=== PATIENT | male | born 1935 | race Caucasian/White ===

== ENCOUNTER 2017-01-06 13:16 | Emergency (ER) | payer OTHER ==
[~2017-01-06] VITALS: Wt 68.0 kg
[2017-01-06] MEDS ORDERED: SYMBICORT1 AE1 INH (13:21)
[2017-01-06] MEDS ORDERED: ONETOUCH ULTRA1 EACH MC (13:29)
[2017-01-06] MEDS ORDERED: AMARYL2 MG PO (13:29)
[2017-01-06] MEDS ORDERED: LOVASTATIN40 MG PO (13:30)
[2017-01-06] MEDS ORDERED: METFORMIN HCL500 MG PO (13:30)
[2017-01-06] MEDS ORDERED: LEVEMIR10 ML SC (13:31)
[2017-01-06 13:53] LABS: BASO % 0.2 % (0.0-1.0); EOS % 0.1 % (1.0-4.0); HEMATOCRIT 39.1 % (42.0-52.0); HEMOGLOBIN 12.4 g/dl (14.0-18.0); LYMPH # 1.5 10*3/uL (1.3-4.4); LYMPH % 14.5 % (27.0-41.0); MEAN CELL VOLUME 92.2 fl (80.0-94.0); MEAN CORPUSCULAR HGB 29.2 pg (27.0-31.0); MEAN CORPUSCULAR HGB CONC 31.7 g/dl (33.0-37.0); MEAN PLATELET VOLUME 9.9 fl (9.6-12.3); MONO # 0.5 10*3/uL (0.1-1.0); MONO % 4.2 % (3.0-9.0); NEUT # 8.6 10*3/uL (2.3-7.9); NEUT % 80.7 % (47.0-73.0); PLATELET COUNT AUTOMATED 261 10*3/uL (130-400); RED BLOOD COUNT 4.24 10*6/uL (4.50-5.90); RED CELL DISTRI WIDTH 12.6 % (0-14.5); WHITE BLOOD COUNT 10.7 10*3/uL (4.8-10.8)
[2017-01-06 14:08] LABS: ALBUMIN 3.5 gm/dl (3.1-4.5); ALKALINE PHOSPHATASE 71 U/L (45-117); BILIRUBIN, TOTAL 0.3 mg/dl (0.2-1.0); BUN 23 mg/dl (7-24); CARBON DIOXIDE 25 mmol/L (21-32); CHLORIDE 103 mmol/L (98-107); EST GLOM FILT AFRICAN AMERICAN > 60 ml/min; GLUCOSE 179 mg/dL (65-99); POTASSIUM 4.2 mmol/L (3.5-5.1); SGOT/AST 7 IU/L (3-35); SGPT/ALT 16 U/L (12-78); SODIUM 138 mmol/L (136-145); TOTAL PROTEIN 7.2 gm/dL (6.4-8.2)
[2017-01-06 15:55] LABS: BILIRUBIN NEGATIVE (NEGATIVE); BLOOD NEGATIVE (NEGATIVE); CLARITY SL CLOUDY (CLEAR); COLOR YELLOW (YELLOW); GLUCOSE NEGATIVE (NEGATIVE); KETONE TRACE (NEGATIVE); LEUKO ESTERASE NEGATIVE (NEGATIVE); NITRITE NEGATIVE (NEGATIVE); PROTEIN TRACE (NEGATIVE); SPECIFIC GRAVITY <= 1.005 (1.005-1.030); UROBILINOGEN 0.2 E.U./dl (0.2-1.0)
[2017-01-06 16:01] LABS: BACTERIA TRACE; EPITHELIAL CELLS 0-2; RBC 0-2 rbc/hpf (0-2); URINE REFLEX COMMENT NO (NO)
[2017-01-06] MEDS ORDERED: MIRALAX POWDER17 G1 PO (16:12)
== END 2017-01-06 16:18 | disposition home or self-care (01) ==
LOC: ED 13:16
PROVIDERS: Nurse Practitioner Family
DX: K59.00 Constipation, unspecified (principal); R03.0 Elevated blood-pressure reading, without diagnosis of hypertension; R00.1 Bradycardia, unspecified; Z79.899 Other long term (current) drug therapy

== ENCOUNTER 2017-01-06 23:56 | Emergency (ER) | payer OTHER ==
[~2017-01-06] VITALS: Ht 167.6 cm; Wt 72.6 kg
[~2017-01-06 23:56] MED LIST: AMARYL2 MG PO; LEVEMIR10 ML SC; LOVASTATIN40 MG PO; METFORMIN HCL500 MG PO; MIRALAX POWDER17 G1 PO; ONETOUCH ULTRA1 EACH MC; SYMBICORT1 AE1 INH
[2017-01-07 01:07] LABS: BASO % 0.2 % (0.0-1.0); EOS % 0.2 % (1.0-4.0); HEMATOCRIT 37.3 % (42.0-52.0); HEMOGLOBIN 12.3 g/dl (14.0-18.0); IG # 0.1 10*3/uL (0.0-0.1); LYMPH # 2.3 10*3/uL (1.3-4.4); LYMPH % 16.6 % (27.0-41.0); MEAN CELL VOLUME 90.8 fl (80.0-94.0); MEAN CORPUSCULAR HGB 29.9 pg (27.0-31.0); MEAN PLATELET VOLUME 9.9 fl (9.6-12.3); MONO % 7.2 % (3.0-9.0); NEUT # 10.5 10*3/uL (2.3-7.9); NEUT % 75.4 % (47.0-73.0); PLATELET COUNT AUTOMATED 269 10*3/uL (130-400); RED BLOOD COUNT 4.11 10*6/uL (4.50-5.90); RED CELL DISTRI WIDTH 12.7 % (0-14.5)
[2017-01-07 01:24] LABS: ALBUMIN 3.2 gm/dl (3.1-4.5); ALKALINE PHOSPHATASE 69 U/L (45-117); BILIRUBIN, TOTAL 0.4 mg/dl (0.2-1.0); BUN 20 mg/dl (7-24); CARBON DIOXIDE 28 mmol/L (21-32); CHLORIDE 98 mmol/L (98-107); EST GLOM FILT AFRICAN AMERICAN > 60 ml/min; GLUCOSE 131 mg/dL (65-99); POTASSIUM 4.2 mmol/L (3.5-5.1); SGOT/AST 13 IU/L (3-35); SGPT/ALT 15 U/L (12-78); SODIUM 133 mmol/L (136-145); TOTAL PROTEIN 7.1 gm/dL (6.4-8.2)
== END 2017-01-07 02:44 | disposition home or self-care (01) ==
LOC: ED 23:56
PROVIDERS: Student in an Organized Health Care Education/Training Program
DX: K59.00 Constipation, unspecified (principal); R10.30 Lower abdominal pain, unspecified; Z79.4 Long term (current) use of insulin; Z79.899 Other long term (current) drug therapy

== ENCOUNTER 2018-02-07 21:07 | Inpatient (IN) | payer OTHER ==
[~2018-02-07] VITALS: Ht 170.1 cm; Wt 75.3 kg
--- NOTE | ~2018-02-07 | EKG ---
[place], [place] ELECTROCARDIOGRAM REPORT NAME: RUBIO ARNDT UNIT #: [id number] ROOM: 402 DOCTOR: BUD DRAFT REPORT BIRTHDATE: [birth year] [facility] [place] Test Date: 2018-02-08 Test Time: 03:23:39 Pat Name: RUBIO ARNDT Department: Room: 402 Gender: M [facility] Rn: SHWETA : 1935 Requested By: JOSEPH RIDER Order Number: [id number] Reading MD: Henri Adames MD Measurements Intervals [place] Rate: 50 P: 55 [place]: 201 QRS: 36 QRSD: 124 T: 49 QT: 472 QTc: 431 Interpretive Statements Sinus rhythm with sinus arrhythmia Nonspecific intraventricular conduction delay Borderline low voltage in extremity leads No change from earlier ECG this date. Electronically Signed On 02-08-2018 7:51:57 PDT by Henri Adames MD CM:EKGRPT:ELECTROCARDIOGRAM REPORT [id number] JOSEPH KILPATRICK DRAFT REPORT JOSEPH RIDER DO
--- NOTE | ~2018-02-07 | PR ---
[place], [place] PROGRESS NOTE NAME: RUBIO ARNDT UNIT #: [id number] ROOM: 402 DOCTOR: GOLDEN ZENG MD BIRTHDATE: [birth year] DOS: 02/09/2018 SUBJECTIVE: The patient was seen in the Cardiology Department today, 02/09/2019 prior to his pharmacologic stress test. After I saw him for my initial consult, he did have a liver ultrasound, which showed cholelithiasis. The gallbladder does contain sludge and multiple echogenic foci. There was no pericholecystic fluid or wall thickening. An echocardiogram was also done, which showed normal left ventricular size with inferobasal hypokinesis. There is moderate concentric left ventricular hypertrophy. Ejection fraction is 40-45% with stage 1 diastolic relaxation abnormalities, mild mitral insufficiency is present. Mild tricuspid insufficiency is also seen, but no pulmonary hypertension was seen. OBJECTIVE: VITAL SIGNS: Today, his pulse is 54 and regular, blood pressure 148/58. He is afebrile. NECK: Supple. He has no jugular distention. Carotids are full. LUNGS: Respirations are unlabored. His chest is clear to auscultation and percussion. He has no presacral edema. HEART: Has a regular rhythm. He has a fourth heart sound, but no third heart sound. ABDOMEN: Benign. EXTREMITIES: Showed no edema. IMPRESSION: 1. Precordial chest pain, most likely due to cholelithiasis and the patient passing a gallstone. 2. Acute on chronic renal insufficiency. 3. Bradycardia with intraventricular conduction delay, most likely this does represent an early-conduction system disorder, but is unlikely to be a cause for the patient's symptoms. 4. Type 2 diabetes mellitus. 5. Abnormal echocardiogram demonstrating a possible previous inferior wall myocardial infarction and mildly impaired left ventricular systolic function. PLAN: The patient will undergo pharmacologic stress test today for risk stratification. Further recommendations will depend upon the results of the stress test. I thank the hospitalist physicians for asking our advice regarding his care. [place], [place] PROGRESS NOTE NAME: RUBIO ARNDT UNIT #: [id number] ROOM: 402 DOCTOR: GOLDEN ZENG MD BIRTHDATE: [birth year] GOLDEN ZENG MD CM:CHRISTIANO [id number] GOLDEN ZENG MD 02/09/18 1133 interface
--- NOTE | ~2018-02-07 | CON ---
[place], [place] REPORT OF CONSULTATION NAME: RUBIO ARNDT UNIT #: [id number] ROOM: 402 DOCTOR: GOLDEN ZENG MD BIRTHDATE: [birth year] DOS: 02/08/2018 CARDIOLOGY CONSULTATION CHIEF COMPLAINT: Chest discomfort, belching. HISTORY OF PRESENT ILLNESS: The patient is an 82-year-old man who was seen at his bedside with family in attendance today 02/08/2018 for evaluation of chest discomfort. He has no previous history of heart disease. He does have a history of diabetes, on oral medications. He was in his normal state of health until the last 2 days. He states he has felt fatigued, but denies fevers, chills, anorexia, nausea or vomiting. Yesterday after his supper, he did develop a tight ache and nausea in the center of his chest. He felt like it might be gas, but Tums did not help. In the ambulance, he was given nitroglycerin and broke out into a sweat, but did not notice that the nitroglycerin caused an immediate relief in his symptoms. The symptoms lasted over an hour. He did not vomit or have any dyspnea with it. He did not have any shortness of breath. Symptoms resolved spontaneously. Since he has been in the hospital, serial electrocardiograms have shown sinus bradycardia with PVCs, an IVCD and nonspecific ST changes. Serial troponin levels have been unremarkable and normal. On admission, his AST was minimally elevated, but ALT was normal and alkaline phosphatase was normal. Upon repeat, all 3 have increased substantially. Bilirubin was normal, however. PAST HISTORY: Includes: 1. Type 2 diabetes mellitus, on oral medications. 2. Hyperlipidemia. 3. Chronic renal insufficiency. 4. Status post hernia surgery. MEDICATIONS PRIOR TO ADMISSION: Include aspirin 81 mg daily, B12, garlic, and Coenzyme Q10 supplements, glimepiride 2 mg b.i.d., lovastatin 40 mg at bedtime and metformin 500 mg b.i.d. ALLERGIES: He has no known drug allergies. FAMILY HISTORY: Negative for early coronary artery disease. His mother in her sleep at age 82. His father of a brain tumor at age 72. He has 4 brothers, but none of them have any heart disease. REVIEW OF SYSTEMS: The patient denies diplopia or loss of vision. He denies fevers, chills or recent weight change. He has been fatigued for the last 2 days. He denies any focal weakness. He denies nausea or vomiting, but he did have the chest discomfort and belching noted above. He denied hemoptysis or hematemesis. He denied any skin rashes. He denied change in bowel or bladder habits. He denied blood in his stools or urine. He denied any peripheral edema or swelling of his joints. He denies any skin rashes. He denies heat or cold intolerance and denies polyuria or polydipsia. Remainder of the review of systems is negative except as noted above. 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 He does not consume significant amounts of alcohol. PHYSICAL EXAMINATION: GENERAL: The patient is an elderly white male who is awake, alert and oriented. VITAL SIGNS: Pulse is 50 and regular, blood pressure is 148/64. He is afebrile. He weighs 75.3 kg and has a body mass index of 26. HEENT: Normocephalic and atraumatic. Extraocular muscles are intact. Sclerae are clear. Pupils equal, round and react to light. The oral mucosa is moist. Tongue is midline. NECK: Supple. He has no jugular distention. Carotids are full and I heard no bruits. He had no neck or supraclavicular masses and no thyromegaly. LUNGS: Respirations are unlabored. His chest is clear to auscultation and percussion. He has no presacral edema or chest wall tenderness. HEART: Has a regular rhythm. He has a fourth heart sound, but no third heart sound. He does have a grade 2/6 systolic ejection murmur along the left sternal border. There are no diastolic murmurs. The PMI is not displaced. ABDOMEN: Soft and normally active without masses, organomegaly or bruits. He does not have any tenderness or rebound including in the right upper quadrant. EXTREMITIES: Showed no clubbing, cyanosis or edema. Peripheral pulses were somewhat diminished, but palpable in the feet. He had diminished hair growth on the feet, but there was some hair growth. I reviewed the electrocardiogram, which showed sinus bradycardia and an intraventricular conduction delay, but no acute ST or T-wave changes. Chest x-ray showed basilar atelectasis, but no consolidation. The cardiomediastinal silhouette was normal. IMPRESSION: 1. Precordial chest pain, etiology to be determined. He shows no acute ST changes and cardiac biomarkers have been normal. He did have a jump in his liver function studies after admission suggesting an acute hepatic injury. It is possible that he passed a gallstone causing his chest discomfort and the change in his LFTs. 2. Acute on chronic renal insufficiency. The patient's creatinine was 2.1 on admission and has fallen to 1.76. His baseline creatinine is 1.3. 3. Bradycardia with an intraventricular conduction delay. The patient is not on any heart rate slowing medications. This probably does represent an early conduction system disorder, but is unlikely to be a cause of symptoms at this point. 4. Type 2 diabetes mellitus. PLAN: The patient does not show signs of an acute coronary syndrome. In order to evaluate his cardiac status further, we will obtain an echocardiogram and do a pharmacologic myocardial perfusion study. I think, however, that it is much more likely that his symptoms are of GI origin, especially since his SGOT and SGPT along with his alkaline phosphatase angel dramatically after admission. [place], [place] REPORT OF CONSULTATION NAME: RUBIO ARNDT UNIT #: [id number] ROOM: 402 DOCTOR: GOLDEN ZENG MD BIRTHDATE: [birth year] As far as the bradycardia is concerned, I believe that this is asymptomatic and we should just observe this for now, we should avoid heart rate slowing medications in his management. I thank the hospitalist physicians for asking our advice regarding his management. GOLDEN ZENG MD CM:CONSTR:REPORT OF CONSULTATION 1158 02/08/18 [id number] interface
--- NOTE | ~2018-02-07 | EKG ---
[place], [place] ELECTROCARDIOGRAM REPORT NAME: RUBIO ARNDT UNIT #: [id number] ROOM: 402 DOCTOR: BUD DRAFT REPORT BIRTHDATE: [birth year] [facility] Test Date: 2018-02-08 Test Time: 00:06:53 Pat Name: RUBIO ARNDT Department: [facility] Room: [facility] Gender: M [employer] Plant Operator: Henri Vaughn : 1935 Requested By: JOSEPH RIDER Order Number: [id number] Reading MD: Henri Adames MD Measurements Intervals [place] Rate: 53 P: 7 [place]: 190 QRS: 20 QRSD: 112 T: 43 QT: 446 QTc: 419 Interpretive Statements Sinus rhythm Borderline IVCD Borderline low voltage, extremity leads Compared to previous tracing, PVCs are no longer seen Electronically Signed On 02-08-2018 7:47:22 PDT by Henri Adames MD CM:EKGRPT:ELECTROCARDIOGRAM REPORT [id number] JOSEPH KILPATRICK DRAFT REPORT JOSEPH RIDER DO
--- NOTE | ~2018-02-07 | EKG ---
[place], [place] ELECTROCARDIOGRAM REPORT NAME: RUBIO ARNDT UNIT #: [id number] ROOM: 402 DOCTOR: BUD DRAFT REPORT BIRTHDATE: [birth year] [facility] Test Date: 2018-02-07 Test Time: 21:11:37 Pat Name: RUBIO ARNDT Department: [facility] Room: 402 Gender: M Senior Project Leader/Team Lead: Henri Vaughn : 1935 Requested By: JOSEPH RIDER Order Number: [id number] Reading MD: Henri Adames MD Measurements Intervals [place] Rate: 51 P: 16 [place]: 201 QRS: -4 QRSD: 113 T: 47 QT: 431 QTc: 397 Interpretive Statements Sinus rhythm Multiple ventricular premature complexes Borderline intraventricular conduction delay Baseline wander in lead(s) V1 Electronically Signed On 02-08-2018 7:45:08 PDT by Henri Adames MD CM:EKGRPT:ELECTROCARDIOGRAM REPORT [id number] JOSEPH KILPATRICK DRAFT REPORT JOSEPH RIDER DO
[~2018-02-07 21:07] MED LIST changes: +GLUCOPHAGE500 M1 PO; -METFORMIN HCL500 MG PO
[2018-02-07 21:12] VITALS: BP 133/65
[2018-02-07] MEDS ORDERED: ASPIRIN ADULT L81 M2 PO (21:15)
[2018-02-07] MEDS ORDERED: GARLIC OIL1000 M1 PO (21:15)
[2018-02-07] MEDS ORDERED: B12,B-12,B 12500 MC1 PO (21:15)
[2018-02-07] MEDS ORDERED: CO Q-10200 MG PO (21:16)
[2018-02-07] MEDS ORDERED: SYMB160 INH (21:17)
[2018-02-07 21:29] VITALS: BP 146/66
[2018-02-07 21:29] LABS: BASO % 0.4 % (0.0-1.0); EOS # 0.6 10*3/uL (0.0-0.4); HEMOGLOBIN 11.3 g/dl (14.0-18.0); LYMPH # 3.5 10*3/uL (1.3-4.4); MEAN CELL VOLUME 92.8 fl (80.0-94.0); MEAN CORPUSCULAR HGB CONC 32.3 g/dl (33.0-37.0); MEAN PLATELET VOLUME 9.9 fl (9.6-12.3); MONO % 9.7 % (3.0-9.0); NEUT # 4.9 10*3/uL (2.3-7.9); NEUT % 48.6 % (47.0-73.0); PLATELET COUNT AUTOMATED 252 10*3/uL (130-400); RED BLOOD COUNT 3.77 10*6/uL (4.50-5.90); RED CELL DISTRI WIDTH 13.1 % (0-14.5)
[2018-02-07 21:39] LABS: ACT PARTIAL THROMBO TIME 30.9 SECONDS (20.8-31.5)
[2018-02-07 21:46] LABS: ALBUMIN 3.2 gm/dl (3.1-4.5); ALKALINE PHOSPHATASE 80 U/L (45-117); BUN 25 mg/dl (7-24); CHLORIDE 106 mmol/L (98-107); POTASSIUM 4.6 mmol/L (3.5-5.1); SGOT/AST 43 IU/L (3-35); SGPT/ALT 27 U/L (12-78); SODIUM 140 mmol/L (136-145); TOTAL PROTEIN 6.7 gm/dL (6.4-8.2)
[2018-02-07 21:53] LABS: TROPONIN I < 0.015 ng/ml (<0.045)
[2018-02-07 23:04] VITALS: BP 142/88
[2018-02-07 23:15] VITALS: BP 148/64
[2018-02-08] VITALS: BP 141/54
[2018-02-08 06:46] LABS: BASO % 0.4 % (0.0-1.0); EOS # 0.3 10*3/uL (0.0-0.4); EOS % 4.3 % (1.0-4.0); HEMATOCRIT 37.6 % (42.0-52.0); HEMOGLOBIN 11.8 g/dl (14.0-18.0); LYMPH # 2.1 10*3/uL (1.3-4.4); LYMPH % 25.9 % (27.0-41.0); MEAN CELL VOLUME 94.2 fl (80.0-94.0); MEAN CORPUSCULAR HGB 29.6 pg (27.0-31.0); MEAN CORPUSCULAR HGB CONC 31.4 g/dl (33.0-37.0); MEAN PLATELET VOLUME 10.2 fl (9.6-12.3); MONO # 0.7 10*3/uL (0.1-1.0); MONO % 8.6 % (3.0-9.0); NEUT # 4.8 10*3/uL (2.3-7.9); NEUT % 60.4 % (47.0-73.0); PLATELET COUNT AUTOMATED 226 10*3/uL (130-400); RED BLOOD COUNT 3.99 10*6/uL (4.50-5.90); RED CELL DISTRI WIDTH 12.9 % (0-14.5); WHITE BLOOD COUNT 7.9 10*3/uL (4.8-10.8)
[2018-02-08 06:49] LABS: ALBUMIN 2.9 gm/dl (3.1-4.5); CREATININE 1.76 mg/dL (0.70-1.30); FREE T4 0.96 ng/dl (0.76-1.46); POTASSIUM 4.5 mmol/L (3.5-5.1); TOTAL PROTEIN 6.2 gm/dL (6.4-8.2)
[2018-02-08 06:54] LABS: ACT PARTIAL THROMBO TIME 30.1 SECONDS (20.8-31.5); THYROID STIM HORMONE (HS) 0.763 uIU/ml (0.358-4.75)
[2018-02-08 07:46] LABS: VITAMIN D, 25-HYDROXY 33.7 ng/mL (30-100)
[2018-02-08 12:00] VITALS: BP 175/56
[2018-02-08 16:00] VITALS: BP 140/48
[2018-02-08 20:00] VITALS: BP 141/54
[2018-02-09] VITALS: BP 133/54
[2018-02-09 07:10] LABS: CREATININE 1.54 mg/dL (0.70-1.30)
[2018-02-09 07:12] LABS: TOTAL PROTEIN 6.1 gm/dL (6.4-8.2)
[2018-02-09 08:00] VITALS: BP 148/58
[2018-02-09 12:00] VITALS: BP 147/72
== END 2018-02-09 17:25 | disposition home or self-care (01) | DRG 391 ==
LOC: ED 21:07 → 4E 22:45 → EDHOLD 22:45 → 4E 22:54
PROVIDERS: Emergency Medicine; Family Medicine; Registered Nurse
PROC: 4A02XM4 Measurement of Cardiac Total Activity, External Approach (ICD-10-PCS; principal; 2018-02-09)
PROC: 3E073KZ Introduction of Other Diagnostic Substance into Coronary Artery, Percutaneous Approach (ICD-10-PCS; principal; 2018-02-09)
DX: K21.9 Gastro-esophageal reflux disease without esophagitis (principal); N17.1 Acute kidney failure with acute cortical necrosis; E11.65 Type 2 diabetes mellitus with hyperglycemia; I08.1 Rheumatic disorders of both mitral and tricuspid valves; E67.8 Other specified hyperalimentation; E11.22 Type 2 diabetes mellitus with diabetic chronic kidney disease; R07.9 Chest pain, unspecified; R00.1 Bradycardia, unspecified; E78.00 Pure hypercholesterolemia, unspecified; H26.9 Unspecified cataract; R03.0 Elevated blood-pressure reading, without diagnosis of hypertension; R74.0 Nonspecific elevation of levels of transaminase and lactic acid dehydrogenase [LDH]; K80.20 Calculus of gallbladder without cholecystitis without obstruction; E78.5 Hyperlipidemia, unspecified; N18.9 Chronic kidney disease, unspecified; Z79.899 Other long term (current) drug therapy; Z79.82 Long term (current) use of aspirin; Z82.49 Family history of ischemic heart disease and other diseases of the circulatory system; Z84.89 Family history of other specified conditions

== ENCOUNTER 2020-10-25 02:38 | Emergency (ER) | payer MEDICARE, OTHER ==
[~2020-10-25] VITALS: Ht 167.6 cm; Wt 72.7 kg
[~2020-10-25 02:38] MED LIST changes: +ASPIRIN ADULT L81 M2 PO; +B12,B-12,B 12500 MC1 PO; +CO Q-10200 MG PO; +GARLIC OIL1000 M1 PO; +SYMB160 INH
[2020-10-25 02:58] LABS: BASO # 0.1 10*3/uL (0.0-0.1); BASO % 0.5 % (0.0-1.0); EOS # 0.7 10*3/uL (0.0-0.4); HEMATOCRIT 40.1 % (42.0-52.0); LYMPH # 3.6 10*3/uL (1.3-4.4); MEAN CELL VOLUME 92.6 fl (80.0-94.0); MEAN CORPUSCULAR HGB 29.6 pg (27.0-31.0); MEAN CORPUSCULAR HGB CONC 31.9 g/dl (33.0-37.0); MEAN PLATELET VOLUME 9.6 fl (9.6-12.3); MONO # 0.9 10*3/uL (0.1-1.0); MONO % 8.9 % (3.0-9.0); NEUT # 4.5 10*3/uL (2.3-7.9); NEUT % 46.4 % (47.0-73.0); PLATELET COUNT AUTOMATED 248 10*3/uL (130-400); RED BLOOD COUNT 4.33 10*6/uL (4.50-5.90); RED CELL DISTRI WIDTH 12.9 % (0-14.5); WHITE BLOOD COUNT 9.7 10*3/uL (4.8-10.8)
[2020-10-25 03:07] LABS: BILIRUBIN Negative (Negative); BLOOD Negative (Negative); CLARITY Clear (Clear); COLOR Yellow (Yellow); GLUCOSE Negative (Negative); KETONE Negative (Negative); LEUKO ESTERASE Negative (Negative); NITRITE Negative (Negative); SPECIFIC GRAVITY <= 1.005 (1.001-1.030); UROBILINOGEN 0.2 E.U./dl (0.0-1.0)
[2020-10-25 03:14] LABS: WBC 0-2 wbc/hpf (0-5)
[2020-10-25 03:15] LABS: ALBUMIN 3.1 gm/dl (3.1-4.5); ALKALINE PHOSPHATASE 93 U/L (45-117); BUN 25 mg/dl (7-24); CHLORIDE 110 mmol/L (98-107); CREATININE 1.55 mg/dL (0.70-1.30); POTASSIUM 4.6 mmol/L (3.5-5.1); SGOT/AST 19 IU/L (3-35); SGPT/ALT 24 U/L (12-78); SODIUM 140 mmol/L (136-145); TOTAL PROTEIN 6.9 gm/dL (6.4-8.2)
[2020-10-25 03:16] LABS: TROPONIN I < 0.015 ng/ml (<0.045)
== END 2020-10-25 06:42 | disposition home or self-care (01) ==
LOC: ED 02:38
PROVIDERS: Emergency Medicine
DX: F41.9 Anxiety disorder, unspecified (principal); Z02.89 Encounter for other administrative examinations; E11.9 Type 2 diabetes mellitus without complications; Z79.899 Other long term (current) drug therapy; Z79.84 Long term (current) use of oral hypoglycemic drugs

== ENCOUNTER 2022-04-06 01:03 | Emergency (ER) | payer MEDICARE, OTHER ==
[~2022-04-06] VITALS: Wt 74.8 kg
[2022-04-06 01:20] LABS: BASO # 0.1 10*3/uL (0.0-0.1); BASO % 0.5 % (0.0-1.0); EOS # 0.6 10*3/uL (0.0-0.4); EOS % 5.7 % (1.0-4.0); HEMATOCRIT 40.3 % (42.0-52.0); LYMPH # 3.9 10*3/uL (1.3-4.4); LYMPH % 38.9 % (27.0-41.0); MEAN CELL VOLUME 93.3 fl (80.0-94.0); MEAN CORPUSCULAR HGB 29.9 pg (27.0-31.0); MEAN PLATELET VOLUME 9.7 fl (9.6-12.3); MONO # 0.9 10*3/uL (0.1-1.0); MONO % 9.1 % (3.0-9.0); NEUT # 4.5 10*3/uL (2.3-7.9); NEUT % 45.4 % (47.0-73.0); PLATELET COUNT AUTOMATED 220 10*3/uL (130-400); RED BLOOD COUNT 4.32 10*6/uL (4.50-5.90); RED CELL DISTRI WIDTH 13.1 % (0-14.5)
[2022-04-06 01:32] LABS: ACT PARTIAL THROMBO TIME 35.5 SECONDS (20.0-32.1)
[2022-04-06 01:37] LABS: CREATININE 1.55 mg/dL (0.70-1.30); TOTAL PROTEIN 7.3 gm/dL (6.4-8.2)
[2022-04-06] MEDS ORDERED: TRAZODONE50 MG PO (01:44)
[2022-04-06] MEDS ORDERED: ATORVASTATIN CA40 M1 PO (01:44)
[2022-04-06] MEDS ORDERED: METOPROLOL SUCC25 M2 PO (01:44)
== END 2022-04-06 04:18 | disposition home or self-care (01) ==
LOC: ED 01:03
PROVIDERS: Emergency Medicine
DX: R07.89 Other chest pain (principal); Z98.890 Other specified postprocedural states; Z79.899 Other long term (current) drug therapy